=== PATIENT | female | born 1970 | race Caucasian/White ===

== ENCOUNTER 2017-03-22 12:36 | Emergency (ER) | payer OTHER ==
--- NOTE | 2017-03-22 13:27 | DIAGNOSTIC IMAGING REPORT ---
PROCEDURE: XR CHEST 1 VIEW INDICATION: CHEST PAIN TECHNIQUE: Portable AP view 01:05 p.m. COMPARISON: None. FINDINGS: Lungs are clear. Heart and mediastinum are normal. Thorax is normal. IMPRESSION: 1. Negative chest.
--- NOTE | 2017-03-22 16:28 | ED ORDER SUMMARY ---
..... Patient: GIANLUCA POWER OrderSheet [facility] VisitID: [id number] [place] [address] 46y, F Registration Date/Time: 03/22/2017 ORDER SHEET Weight: 119.2 kg (stated) Allergies: No Known Drug Allergy GENERAL ORDERS: Chest 1V Urgent (12:56 03/22/2017 HBivens A.R.N.P.) (Ack 12:57 KHoerner) (13:06 KWilliams R.N.) Spectroscopist (Continuous) (12:56 03/22/2017 HBivens A.R.N.P.) (13:02 KWilliams R.N.) CBC w Diff Urgent (12:56 03/22/2017 HBivens A.R.N.P.) (Ack 12:57 KHoerner) (13:02 KWilliams R.N.) CMP Urgent (12:56 03/22/2017 HBivens A.R.N.P.) (Ack 12:57 KHoerner) (13:02 KWilliams R.N.) D-Dimer Urgent (12:56 03/22/2017 HBivens A.R.N.P.) (Ack 12:57 KHoerner) (13:02 KWilliams R.N.) CPK Urgent (12:56 03/22/2017 HBivens A.R.N.P.) (Ack 12:57 KHoerner) (13:02 KWilliams R.N.) Troponin-I Urgent (12:56 03/22/2017 HBivens A.R.N.P.) (Ack 12:57 KHoerner) (13:02 KWilliams R.N.) Serum Qualitative Urgent (12:56 03/22/2017 HBivens A.R.N.P.) (Ack 12:57 KHoerner) (13:02 KWilliams R.N.) Oxygen (2 L/min) (NC) (12:56 03/22/2017 HBivens A.R.N.P.) (13:03 MWinterer R.N.) CPK Urgent (13:57 03/22/2017 HBivens A.R.N.P.) (Ack 13:59 KHoerner) (15:02 KHoerner) Troponin-I Urgent (13:57 03/22/2017 HBivens A.R.N.P.) (Ack 13:59 KHoerner) (15:02 KHoerner) MEDICATION ORDERS: NitroGLYCERIN SL 0.4 mg (x3 PRN Chest Pain) (13:03 03/22/2017 HBivens A.R.N.P.) (Ack 13:03 MWinterer R.N.) (13:04 MWinterer R.N.) IV FLUIDS: IV Saline Lock (12:56 03/22/2017 HBivens A.R.N.P.) (13:02 KWilliams R.N.) ORDER SHEET NOTES: [Electronically signed by Katelyn Sotelo R.N. (17:04 03/22/2017)] [Electronically signed by Layne Quintero.R.N.P. (17:28 03/22/2017)] [Electronically locked/signed by Katelyn Sotelo R.N. (17:04 03/22/2017)]
--- NOTE | 2017-03-22 16:28 | ED NURSING NOTES ---
Clinical Report - Nurses [facility] [address] [place] [address] 03/22/2017 12:40 Patient: GIANLUCA POWER TRIAGE Triage time 12:43. Acuity: LEVEL 3. Chief Complaint: CHEST PAIN and DISCOMFORT. Alert. No acute distress. [facility] COMA SCORE: [place] Coma Scale: 15- eyes open spontaneously (4); best verbal response- oriented x 4 (5); best motor response- obeys commands (6). --12:52 Alexander Kim R.N. 12:44 03/22/17. BP: 129/91. HR: 72. RR: 18. O2 saturation: 100% on room air. Temp: 98.2 F (oral). Pain level now 7/10. --12:52 Alexander Kim R.N. Weight: 119.2 kg stated. Height/Length: 72 inches Per Patient. BMI: 35.7. --12:45 Alexander Kim R.N. Medications None. --12:47 Alexander Kim R.N. Allergies No Known Drug Allergy. --12:47 Alexander Kim R.N. Medication/allergy information source: the patient. --12:52 Alexander Kim R.N. History Historian: patient. ( chest pain starting at 1600 yesterday during rest. states pain is constant. described at pressure. sent from [facility] urgent care, refused BLS transport, asa given at clinic). This started yesterday. 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 PAST MEDICAL HX: Last normal menstrual period was 1 week ago. Denies current . SOCIAL HX: Heavy tobacco smoker- 1 pack per day. No alcohol use or drug use. ABUSE ASSESSMENT: Abuse assessment: The patient was asked "Do you feel safe in your home?". No report of abuse. FALL RISK ASSESSMENT: Fall risk assessment completed. No fall risk identified. NUTRITIONAL RISK ASSESSMENT: The nutritional risk assessment revealed no deficiencies. FUNCTIONAL ASSESSMENT: Functional assessment: no impairments noted. LEARNING NEEDS ASSESSMENT: The learning needs assessment revealed no barriers. SKIN INTEGRITY ASSESSMENT: Skin integrity risk assessment completed. No skin integrity risk identified. --12:52 Alexander Kim R.N. Primary physician (no pcp). --12:53 Alexander Kim R.N. PROBLEMS: no known problems. ADDITIONAL SURGERIES: no known surgeries. Interventions ID band on patient. CHEST PAIN protocol initiated. To treatment room. --12:52 Alexander Kim R.N. PHYSICAL ASSESSMENT Ambulatory to room. GENERAL / NEURO / PSYCH: Alert. Oriented X 4. Appears in no acute distress. RESPIRATORY: Respirations not labored. CVS: Capillary refill less than 2 seconds. GI / : Abdomen soft and nontender. EXTREMITIES: No lower extremity edema. SKIN: Skin is warm and dry. --12:53 Alexander Kim R.N. NURSING PROGRESS NOTES 12:53 03/22/17. The plan of care for this patient has been created. Patient gowned. Head of bed elevated. Call light placed in reach. Bed placed in lowest position. Brakes of bed on. Patient ready for evaluation- chart flagged. --12:53 Alexander Kim R.N. EKG time: (1248). EKG was ordered, performed by a tech and shown to the ED physician. --12:54 [address] [place] 13:00 03/22/2017 Site #1 started via IV in the right antecubital space with an 18g angiocath, with aseptic technique and good blood return; one attempt. Blood drawn: rainbow set. Labeled in the presence of the patient and sent to the lab. Saline lock flushed with 10 mL saline. --13:02 Alexander Kim R.N. 13:04 03/22/2017 Nitroglycerin SL 0.4 mg given. Allergies verified and confirmed 5 rights. --13:04 Katelyn Sotelo R.N. 13:03/22/17. ( Pt reports pain relieved after 1 nitro.). --13: Katelyn Sotelo R.N. 13:03/22/17. BP: 112/73. HR: 69. RR: 18. O2 saturation: 100% on nasal cannula at 2 liters/minute. Pain level now: 0/10. --13:10 Katelyn Sotelo R.N. 14:23 03/22/17. BP: 118/75. HR: 63. RR: 18. O2 saturation: 97% on room air. Pain level now: 0/10. --14:24 Katelyn Sotelo R.N. 14:25 03/22/17. The patient reports no complaints and she is calm and resting quietly. RESPIRATORY: No respiratory distress. CVS: Denies chest pain. SKIN: Skin is warm and dry. Skin color within normal limits. --14:25 Katelyn Sotelo R.N. 14:25 03/22/17. CVS: Normal sinus rhythm noted. --14:25 Katelyn Sotelo R.N. 15:45 03/22/17. BP: 111/61. HR: 67. RR: 18. O2 saturation: 100% on room air. --15:46 Katelyn Sotelo R.N. DISPOSITION / DISCHARGE Departure time: 16:40 Mar 22 2017. Condition at departure: improved and stable. No learning barriers present. Patient verbalized understanding. Written instructions provided in Sami. The patient was discharged by the nurse practitioner. She was discharged home and accompanied by bias cutter helper. She left the Emergency Department ambulatory and via private vehicle. Radio Technician driving. --17:03 Katelyn Sotelo R.N. 17:02 03/22/17. BP: 105/66. HR: 60. RR: 12. O2 saturation: 100% on room air. Pain level now: 0/10. --17:03 Katelyn Sotelo R.N. 16:38 03/22/2017 Site #1 removed upon discharge. Catheter intact. Manual pressure and bandage applied. --17:04 Katelyn Sotelo R.N. Locked/Released at 03/22/2017 17:04 by Katelyn Sotelo R.N.
--- NOTE | 2017-03-22 16:28 | ED CLINICAL REPORT ---
Clinical Report - Physicians/Mid Levels [facility] [address] [place] [address] 03/22/2017 12:40 Patient: GIANLUCA POWER Time Seen: 1248; upon arrival, initial patient contact, initial documentation, patient care assumed. Arrived- By private vehicle. Historian- patient. HISTORY OF PRESENT ILLNESS Chief Complaint: CHEST PAIN and DISCOMFORT. At its maximum, severity described as moderate. When seen in the E.D., severity described as moderate. Modifying factors. Not worsened by anything. Not relieved by anything. It is described as pressure and tightness and describes it has a band going around chest to back and it is described as located in the central chest area and radiating to the upper back. This started yesterday and is still present. It was abrupt in onset and has been constant. Onset during rest; watching tv. No nausea, vomiting or diaphoresis. She has had difficulty breathing at rest (says she feels like she can't get a good or deep breath). No additional chest pain. Similar symptoms previously: Several times, occasionally, milder. ( has had several issues of this happening, but never went to dr, thought it was anxiety). Recent medical care: The patient was seen recently in a clinic. ( went to clinic [employer], given asa and sent here for eval). REVIEW OF SYSTEMS No fever, cough or pedal edema. All systems otherwise negative, except as recorded above. PAST HISTORY Negative. SOCIAL HISTORY Heavy tobacco smoker. No alcohol use or drug use. No recent travel. Is a local resident. FAMILY HISTORY History of heart disease. ADDITIONAL NOTES The nursing notes have been reviewed with agreement regarding the chief complaint, HPI, ROS, PMH and patient medications and allergies. PHYSICAL EXAM Vital Signs: 03/22/2017 12:44 BP: 129/91. HR: 72. RR: 18. O2 saturation: 100%. Temp: 98.2 F. Have been reviewed as normal and appear to be correct. Appearance: Alert. Oriented X3. No acute distress. Eyes: Pupils equal, round and reactive to light. Eyes normal inspection. Neck: Normal inspection. Neck supple. CVS: Normal heart rate and rhythm. Heart sounds normal. Pulses normal. Respiratory: No respiratory distress. Breath sounds normal. Chest nontender. Abdomen: Soft and nontender. Mildly obese. Back: Normal external inspection. Skin: Skin warm and dry. Normal skin color. No rash. Normal skin turgor. Extremities: Extremities exhibit normal ROM. No lower extremity edema. Neuro: Oriented X 3. No motor deficit. No sensory deficit. LABS, X-RAYS, AND EKG EKG: EKG time: (1248). No acute process. No acute ischemia. Normal EKG. Rate: 67. Normal EKG. The study has been interpreted contemporaneously by me (and Dr Mauricio). The EKG appears to be a good tracing. Interpretation time: 1248. Chest X-ray: Normal Chest X-Ray. (IMPRESSION: 1. Negative chest. Electronically Final signed by:Lan Gregg MD 03/22/2017 1:27:09 PM). The X-rays were interpreted by the radiologist and contemporaneously by me. Laboratory Tests: Serum Qualitative: (MERLIN: 03/22/2017 13:00) ( [facility] 03/22/2017 13:25) Final results Test Result Flag Units (Reference) , SERUM NEGATIVE CBC w Diff: (MERLIN: 03/22/2017 13:00) ( [facility] 03/22/2017 13:10) Final results Test Result Flag Units (Reference) WHITE BLOOD COUNT 4.6 K/uL (4.5-11.5) RED BLOOD COUNT 4.88 M/uL (4.00-5.20) HEMOGLOBIN 15.0 gm/dL (12.0-16.0) HEMATOCRIT 45.0 % (36.0-46.0) MEAN CELL VOLUME 92 fL (80-100) MEAN CORPUSCULAR HGB 31 pg (26-34) MEAN CORPUSCULAR HGB CONC 33 g/dL (31-37) RED CELL DISTRIBUTION WIDTH 12.4 % (11.6-14.8) PLATELET COUNT 230 K/uL (150-400) LYMPH % 38.5 % (25-40) MONO % 8.4 % (3-14) GRANULOCYTE % 53.1 (53-90) [id number]: (MERLIN: 03/22/2017 13:00) ( [facility] 03/22/2017 13:18) Final results Test Result Flag Units (Reference) D-DIMER QUANTITATIVE < 0.27 L ug/mLFEU (0.27-0.52) The primary value of this quantitative assay relates toits negative predictive value (i.e. exclusion) of pulmonaryembolism/deep vein thrombosis/DIC.Elevated levels of d-dimer may also occur with:, age, cancer, inflammation, liver disease,post-op, infection, hematoma, coronary disease, peripheralarteriopathy, bleeding disorders and thrombolytic treatment.Results should be correlated with other clinical andradiological data.Testing Methodology: Latex Immunoassay CPK: (MERLIN: 03/22/2017 15:00) ( [facility] 03/22/2017 15:32) Final results Test Result Flag Units (Reference) CPK 110 U/L (24-260) TROPONIN I <0.05 ng/mL (0.00-1.5) TROPONIN REFERENCE RANGE:<0.1 NEGATIVE0.1-1.5 INDETERMINANT>1.5 POSITIVE CMP: (MERLIN: 03/22/2017 13:00) ( [facility] 03/22/2017 13:28) Final results Test Result Flag Units (Reference) GLUCOSE 106 mg/dL (70-110) BUN 9 mg/dL (7-18) CREATININE 0.8 mg/dL (0.6-1.3) Estimated GFR >60 mL/min Estimated GFR- >60 mL/min Note: Persistent reduction over 3 months in eGFR<60 mL/min/1.73 m2 defines CKD. Patients with eGFR values>=60 mL/min/1.73 m2 may also have CKD if evidence ofpersistent proteinuria. Additional information may be foundat www.kidney.org. SODIUM 139 mmol/L (136-145) POTASSIUM 3.9 mmol/L (3.5-5.1) CHLORIDE 104 mmol/L (98-107) CARBON DIOXIDE 29 mmol/L (21-32) CALCIUM 8.8 mg/dL (8.5-10.1) TOTAL PROTEIN 7.3 g/dL (6.4-8.2) ALBUMIN 3.8 g/dL (3.3-5.0) BILIRUBIN, TOTAL 1.5 H mg/dL (0.0-1.0) ALKALINE PHOSPHATASE 56 U/L (46-116) AST (SGOT) 16 U/L (15-37) ALT (SGPT) 23 U/L (12-78) CPK 114 U/L (24-260) TROPONIN I <0.05 ng/mL (0.00-1.5) TROPONIN REFERENCE RANGE:<0.1 NEGATIVE0.1-1.5 INDETERMINANT>1.5 POSITIVE . PROGRESS AND PROCEDURES Course of Care: 13:02 03/22/17. chart from clinic reviewed 1355. labs reviewed and 2nd set of enzymes ordered and due at 1500, pt updated, nurse informing me pt was cp free after x1 ntg. 03/22/2017 15:45 BP: 111/61. HR: 67. RR: 18. O2 saturation: 100%. Vital Signs: have been reviewed as normal and appear to be correct. Patient counseled in person regarding the patient's stable condition, test results and diagnosis. 16:28. Differential Diagnosis: I considered muscle strain, costochondritis, myositis, pleurisy, myocardial infarction, intermediate coronary syndrome, unstable angina, angina, aortic dissection, mitral valve prolapse, pericarditis, pulmonary embolism, pneumonia, lung cancer, gastroesophageal reflux disease, esophagitis and esophageal spasm as a possible cause of chest pain in this patient. This is a partial list of diagnoses considered. (anxiety, substance abuse). Above considerations are based on history, physical exam, reassessment, laboratory data, X-Ray data and EKG. Differential diagnosis was discussed with patient. Disposition: Discharged home in good and improved condition (16:28). Condition: good and stable. CLINICAL IMPRESSION Atypical chest pain .12 lead EKG performed. INSTRUCTIONS Warnings: Further evaluation is necessary in order to conduct further tests. It is very important to follow up with a physician. GENERAL WARNINGS: Return or contact your physician immediately if your condition worsens or changes unexpectedly, if not improving as expected, or if other problems arise. SPECIFICALLY, return if you develop chest, neck, jaw, shoulder, arm, or back pain, difficulty breathing, a fluttering sensation in your chest, lightheadedness, fainting, excessive fatigue, or sudden sweating. Follow-up: Follow up with your doctor in about two days even if well. Call for an appointment. Summary of care provided to patient. Understanding of the discharge instructions verbalized by patient. (Electronically signed by Layne Quintero A.R.N.P. 03/22/2017 17:28)
--- NOTE | 2017-03-22 16:28 | ED ORDER SUMMARY ---
..... Patient: GIANLUCA POWER OrderSheet [facility] VisitID: [id number] [place] [address] 46y, F Registration Date/Time: 03/22/2017 ORDER SHEET Weight: 119.2 kg (stated) Allergies: No Known Drug Allergy GENERAL ORDERS: Chest 1V Urgent (12:56 03/22/2017 HBivens A.R.N.P.) (Ack 12:57 KHoerner) (13:06 KWilliams R.N.) Report Specialist (Continuous) (12:56 03/22/2017 HBivens A.R.N.P.) (13:02 KWilliams R.N.) CBC w Diff Urgent (12:56 03/22/2017 HBivens A.R.N.P.) (Ack 12:57 KHoerner) (13:02 KWilliams R.N.) CMP Urgent (12:56 03/22/2017 HBivens A.R.N.P.) (Ack 12:57 KHoerner) (13:02 KWilliams R.N.) D-Dimer Urgent (12:56 03/22/2017 HBivens A.R.N.P.) (Ack 12:57 KHoerner) (13:02 KWilliams R.N.) CPK Urgent (12:56 03/22/2017 HBivens A.R.N.P.) (Ack 12:57 KHoerner) (13:02 KWilliams R.N.) Troponin-I Urgent (12:56 03/22/2017 HBivens A.R.N.P.) (Ack 12:57 KHoerner) (13:02 KWilliams R.N.) Serum Qualitative Urgent (12:56 03/22/2017 HBivens A.R.N.P.) (Ack 12:57 KHoerner) (13:02 KWilliams R.N.) Oxygen (2 L/min) (NC) (12:56 03/22/2017 HBivens A.R.N.P.) (13:03 MWinterer R.N.) CPK Urgent (13:57 03/22/2017 HBivens A.R.N.P.) (Ack 13:59 KHoerner) (15:02 KHoerner) Troponin-I Urgent (13:57 03/22/2017 HBivens A.R.N.P.) (Ack 13:59 KHoerner) (15:02 KHoerner) MEDICATION ORDERS: NitroGLYCERIN SL 0.4 mg (x3 PRN Chest Pain) (13:03 03/22/2017 HBivens A.R.N.P.) (Ack 13:03 MWinterer R.N.) (13:04 MWinterer R.N.) IV FLUIDS: IV Saline Lock (12:56 03/22/2017 HBivens A.R.N.P.) (13:02 KWilliams R.N.) ORDER SHEET NOTES: [Electronically signed by Katelyn Sotelo R.N. (17:04 03/22/2017)] [Electronically signed by Layne Quintero.R.N.P. (17:28 03/22/2017)] [Electronically locked/signed by Katelyn Sotelo R.N. (17:04 03/22/2017)]
--- NOTE | 2017-03-22 16:28 | ED CLINICAL REPORT ---
Clinical Report - Physicians/Mid Levels [facility] [address] [place] [address] 03/22/2017 12:40 Patient: GIANLUCA POWER Time Seen: 1248; upon arrival, initial patient contact, initial documentation, patient care assumed. Arrived- By private vehicle. Historian- patient. HISTORY OF PRESENT ILLNESS Chief Complaint: CHEST PAIN and DISCOMFORT. At its maximum, severity described as moderate. When seen in the E.D., severity described as moderate. Modifying factors. Not worsened by anything. Not relieved by anything. It is described as pressure and tightness and describes it has a band going around chest to back and it is described as located in the central chest area and radiating to the upper back. This started yesterday and is still present. It was abrupt in onset and has been constant. Onset during rest; watching tv. No nausea, vomiting or diaphoresis. She has had difficulty breathing at rest (says she feels like she can't get a good or deep breath). No additional chest pain. Similar symptoms previously: Several times, occasionally, milder. ( has had several issues of this happening, but never went to dr, thought it was anxiety). Recent medical care: The patient was seen recently in a clinic. 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 REVIEW OF SYSTEMS No fever, cough or pedal edema. All systems otherwise negative, except as recorded above. PAST HISTORY Negative. SOCIAL HISTORY Heavy tobacco smoker. No alcohol use or drug use. No recent travel. Is a local resident. FAMILY HISTORY History of heart disease. ADDITIONAL NOTES The nursing notes have been reviewed with agreement regarding the chief complaint, HPI, ROS, PMH and patient medications and allergies. PHYSICAL EXAM Vital Signs: 03/22/2017 12:44 BP: 129/91. HR: 72. RR: 18. O2 saturation: 100%. Temp: 98.2 F. Have been reviewed as normal and appear to be correct. Appearance: Alert. Oriented X3. No acute distress. Eyes: Pupils equal, round and reactive to light. Eyes normal inspection. Neck: Normal inspection. Neck supple. CVS: Normal heart rate and rhythm. Heart sounds normal. Pulses normal. Respiratory: No respiratory distress. Breath sounds normal. Chest nontender. Abdomen: Soft and nontender. Mildly obese. Back: Normal external inspection. Skin: Skin warm and dry. Normal skin color. No rash. Normal skin turgor. Extremities: Extremities exhibit normal ROM. No lower extremity edema. Neuro: Oriented X 3. No motor deficit. No sensory deficit. LABS, X-RAYS, AND EKG EKG: EKG time: (1248). No acute process. No acute ischemia. Normal EKG. Rate: 67. Normal EKG. The study has been interpreted contemporaneously by me (and Dr Mauricio). The EKG appears to be a good tracing. Interpretation time: 1248. Chest X-ray: Normal Chest X-Ray. (IMPRESSION: 1. Negative chest. Electronically Final signed by:Lan Gregg MD 03/22/2017 1:27:09 PM). The X-rays were interpreted by the radiologist and contemporaneously by me. Laboratory Tests: Serum Qualitative: (MERLIN: 03/22/2017 13:00) ( [facility] 03/22/2017 13:25) Final results Test Result Flag Units (Reference) , SERUM NEGATIVE CBC w Diff: (MERLIN: 03/22/2017 13:00) ( [facility] 03/22/2017 13:10) Final results Test Result Flag Units (Reference) WHITE BLOOD COUNT 4.6 K/uL (4.5-11.5) RED BLOOD COUNT 4.88 M/uL (4.00-5.20) HEMOGLOBIN 15.0 gm/dL (12.0-16.0) HEMATOCRIT 45.0 % (36.0-46.0) MEAN CELL VOLUME 92 fL (80-100) MEAN CORPUSCULAR HGB 31 pg (26-34) MEAN CORPUSCULAR HGB CONC 33 g/dL (31-37) RED CELL DISTRIBUTION WIDTH 12.4 % (11.6-14.8) PLATELET COUNT 230 K/uL (150-400) LYMPH % 38.5 % (25-40) MONO % 8.4 % (3-14) GRANULOCYTE % 53.1 (53-90) [id number]: (MERLIN: 03/22/2017 13:00) ( [facility] 03/22/2017 13:18) Final results Test Result Flag Units (Reference) D-DIMER QUANTITATIVE < 0.27 L ug/mLFEU (0.27-0.52) The primary value of this quantitative assay relates toits negative predictive value (i.e. exclusion) of pulmonaryembolism/deep vein thrombosis/DIC.Elevated levels of d-dimer may also occur with:, age, cancer, inflammation, liver disease,post-op, infection, hematoma, coronary disease, peripheralarteriopathy, bleeding disorders and thrombolytic treatment.Results should be correlated with other clinical andradiological data.Testing Methodology: Latex Immunoassay CPK: (MERLIN: 03/22/2017 15:00) ( [facility] 03/22/2017 15:32) Final results Test Result Flag Units (Reference) CPK 110 U/L (24-260) TROPONIN I <0.05 ng/mL (0.00-1.5) TROPONIN REFERENCE RANGE:<0.1 NEGATIVE0.1-1.5 INDETERMINANT>1.5 POSITIVE CMP: (MERLIN: 03/22/2017 13:00) ( [facility] 03/22/2017 13:28) Final results Test Result Flag Units (Reference) GLUCOSE 106 mg/dL (70-110) BUN 9 mg/dL (7-18) CREATININE 0.8 mg/dL (0.6-1.3) Estimated GFR >60 mL/min Estimated GFR- >60 mL/min Note: Persistent reduction over 3 months in eGFR<60 mL/min/1.73 m2 defines CKD. Patients with eGFR values>=60 mL/min/1.73 m2 may also have CKD if evidence ofpersistent proteinuria. Additional information may be foundat www.kidney.org. SODIUM 139 mmol/L (136-145) POTASSIUM 3.9 mmol/L (3.5-5.1) CHLORIDE 104 mmol/L (98-107) CARBON DIOXIDE 29 mmol/L (21-32) CALCIUM 8.8 mg/dL (8.5-10.1) TOTAL PROTEIN 7.3 g/dL (6.4-8.2) ALBUMIN 3.8 g/dL (3.3-5.0) BILIRUBIN, TOTAL 1.5 H mg/dL (0.0-1.0) ALKALINE PHOSPHATASE 56 U/L (46-116) AST (SGOT) 16 U/L (15-37) ALT (SGPT) 23 U/L (12-78) CPK 114 U/L (24-260) TROPONIN I <0.05 ng/mL (0.00-1.5) TROPONIN REFERENCE RANGE:<0.1 NEGATIVE0.1-1.5 INDETERMINANT>1.5 POSITIVE . PROGRESS AND PROCEDURES Course of Care: 13:02 03/22/17. chart from clinic reviewed 1355. labs reviewed and 2nd set of enzymes ordered and due at 1500, pt updated, nurse informing me pt was cp free after x1 ntg. 03/22/2017 15:45 BP: 111/61. HR: 67. RR: 18. O2 saturation: 100%. Vital Signs: have been reviewed as normal and appear to be correct. Patient counseled in person regarding the patient's stable condition, test results and diagnosis. 16:28. Differential Diagnosis: I considered muscle strain, costochondritis, myositis, pleurisy, myocardial infarction, intermediate coronary syndrome, unstable angina, angina, aortic dissection, mitral valve prolapse, pericarditis, pulmonary embolism, pneumonia, lung cancer, gastroesophageal reflux disease, esophagitis and esophageal spasm as a possible cause of chest pain in this patient. This is a partial list of diagnoses considered. (anxiety, substance abuse). Above considerations are based on history, physical exam, reassessment, laboratory data, X-Ray data and EKG. Differential diagnosis was discussed with patient. Disposition: Discharged home in good and improved condition (16:28). Condition: good and stable. CLINICAL IMPRESSION Atypical chest pain .12 lead EKG performed. INSTRUCTIONS Warnings: Further evaluation is necessary in order to conduct further tests. It is very important to follow up with a physician. GENERAL WARNINGS: Return or contact your physician immediately if your condition worsens or changes unexpectedly, if not improving as expected, or if other problems arise. SPECIFICALLY, return if you develop chest, neck, jaw, shoulder, arm, or back pain, difficulty breathing, a fluttering sensation in your chest, lightheadedness, fainting, excessive fatigue, or sudden sweating. Follow-up: Follow up with your doctor in about two days even if well. Call for an appointment. Summary of care provided to patient. Understanding of the discharge instructions verbalized by patient. (Electronically signed by Layne Quintero A.R.N.P. 03/22/2017 17:28)
--- NOTE | 2017-03-22 16:28 | ED NURSING NOTES ---
Clinical Report - Nurses [facility] [address] [place] [address] 03/22/2017 12:40 Patient: GIANLUCA POWER TRIAGE Triage time 12:43. Acuity: LEVEL 3. Chief Complaint: CHEST PAIN and DISCOMFORT. Alert. No acute distress. MC COMA SCORE: Sentinel Coma Scale: 15- eyes open spontaneously (4); best verbal response- oriented x 4 (5); best motor response- obeys commands (6). --12:52 Alexander Kim R.N. 12:44 03/22/17. BP: 129/91. HR: 72. RR: 18. O2 saturation: 100% on room air. Temp: 98.2 F (oral). Pain level now 7/10. --12:52 Alexander Kim R.N. Weight: 119.2 kg stated. Height/Length: 72 inches Per Patient. BMI: 35.7. --12:45 Alexander Kim R.N. Medications None. --12:47 Alexander Kim R.N. Allergies No Known Drug Allergy. --12:47 Alexander Kim R.N. Medication/allergy information source: the patient. --12:52 Alexander Kim R.N. History Historian: patient. ( chest pain starting at 1600 yesterday during rest. states pain is constant. described at pressure. sent from [facility] urgent care, refused BLS transport, asa given at clinic). This started yesterday. 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 PAST MEDICAL HX: Last normal menstrual period was 1 week ago. Denies current . SOCIAL HX: Heavy tobacco smoker- 1 pack per day. No alcohol use or drug use. ABUSE ASSESSMENT: Abuse assessment: The patient was asked "Do you feel safe in your home?". No report of abuse. FALL RISK ASSESSMENT: Fall risk assessment completed. No fall risk identified. NUTRITIONAL RISK ASSESSMENT: The nutritional risk assessment revealed no deficiencies. FUNCTIONAL ASSESSMENT: Functional assessment: no impairments noted. LEARNING NEEDS ASSESSMENT: The learning needs assessment revealed no barriers. SKIN INTEGRITY ASSESSMENT: Skin integrity risk assessment completed. No skin integrity risk identified. --12:52 Alexander Kim R.N. Primary physician (no pcp). --12:53 Alexander Kim R.N. PROBLEMS: no known problems. ADDITIONAL SURGERIES: no known surgeries. Interventions ID band on patient. CHEST PAIN protocol initiated. To treatment room. --12:52 Alexander Kim R.N. PHYSICAL ASSESSMENT Ambulatory to room. GENERAL / NEURO / PSYCH: Alert. Oriented X 4. Appears in no acute distress. RESPIRATORY: Respirations not labored. CVS: Capillary refill less than 2 seconds. GI / : Abdomen soft and nontender. EXTREMITIES: No lower extremity edema. SKIN: Skin is warm and dry. --12:53 Alexander Kim R.N. NURSING PROGRESS NOTES 12:53 03/22/17. The plan of care for this patient has been created. Patient gowned. Head of bed elevated. Call light placed in reach. Bed placed in lowest position. Brakes of bed on. Patient ready for evaluation- chart flagged. --12:53 Alexander Kim R.N. EKG time: (1248). EKG was ordered, performed by a tech and shown to the ED physician. --12:54 [address] [place] 13:00 03/22/2017 Site #1 started via IV in the right antecubital space with an 18g angiocath, with aseptic technique and good blood return; one attempt. Blood drawn: rainbow set. Labeled in the presence of the patient and sent to the lab. Saline lock flushed with 10 mL saline. --13:02 Alexander Kim R.N. 13:04 03/22/2017 Nitroglycerin SL 0.4 mg given. Allergies verified and confirmed 5 rights. --13:04 Katelyn Sotelo R.N. 13:03/22/17. ( Pt reports pain relieved after 1 nitro.). --13: Katelyn Sotelo R.N. 13:03/22/17. BP: 112/73. HR: 69. RR: 18. O2 saturation: 100% on nasal cannula at 2 liters/minute. Pain level now: 0/10. --13:10 Katelyn Sotelo R.N. 14:23 03/22/17. BP: 118/75. HR: 63. RR: 18. O2 saturation: 97% on room air. Pain level now: 0/10. --14:24 Katelyn Sotelo R.N. 14:25 03/22/17. The patient reports no complaints and she is calm and resting quietly. RESPIRATORY: No respiratory distress. CVS: Denies chest pain. SKIN: Skin is warm and dry. Skin color within normal limits. --14:25 Katelyn Sotelo R.N. 14:25 03/22/17. CVS: Normal sinus rhythm noted. --14:25 Katelyn Sotelo R.N. 15:45 03/22/17. BP: 111/61. HR: 67. RR: 18. O2 saturation: 100% on room air. --15:46 Katelyn Sotelo R.N. DISPOSITION / DISCHARGE Departure time: 16:40 Mar 22 2017. Condition at departure: improved and stable. No learning barriers present. Patient verbalized understanding. Written instructions provided in Swedish. The patient was discharged by the nurse practitioner. She was discharged home and accompanied by development writer. She left the Emergency Department ambulatory and via private vehicle. [employer] Worker driving. --17:03 Katelyn Sotelo R.N. 17:02 03/22/17. BP: 105/66. HR: 60. RR: 12. O2 saturation: 100% on room air. Pain level now: 0/10. --17:03 Katelyn Sotelo R.N. 16:38 03/22/2017 Site #1 removed upon discharge. Catheter intact. Manual pressure and bandage applied. --17:04 Katelyn Sotelo R.N. Locked/Released at 03/22/2017 17:04 by Katelyn Sotelo R.N.
--- NOTE | 2017-03-22 17:29 | ED MED RECONCILIATION SUMMARY ---
Patient: GIANLUCA POWER Medication Reconciliation Report [facility] VisitID: [id number] [address] [place] [address] 46y, F Registration Date/Time: 03/22/2017 Weight: 119.2 kg Height/Length: 72 in. BMI: 35.7 ALLERGIES: No Known Drug Allergy The patient's Home Medications are listed below: NONE. The source(s) of the original Home Medication information: patient The following Medications were given to the patient in the Emergency Department: Nitroglycerin [SL] SL 0.4 mg, administered: 03/22/2017 1:04:00 PM The following Medications were prescribed to the patient: None.
--- NOTE | 2017-03-22 17:29 | ED DISCHARGE INSTRUCTIONS ---
Patient: GIANLUCA POWER General Instructions [facility] VisitID: [id number] [place] [address] 46y, F Registration Date/Time: 03/22/2017 Atypical chest pain .12 lead EKG performed. INSTRUCTIONS Warnings: Further evaluation is necessary in order to conduct further tests. It is very important to follow up with a physician. GENERAL WARNINGS: Return or contact your physician immediately if your condition worsens or changes unexpectedly, if not improving as expected, or if other problems arise. SPECIFICALLY, return if you develop chest, neck, jaw, shoulder, arm, or back pain, difficulty breathing, a fluttering sensation in your chest, lightheadedness, fainting, excessive fatigue, or sudden sweating. Follow-up: Follow up with your doctor in about two days even if well. Call for an appointment. Summary of care provided to patient. Understanding of the discharge instructions verbalized by patient. ADDITIONAL INFORMATION Chest Pain, Noncardiac Based on your visit today, the exact cause of your chest pain is not certain. Your condition does not seem serious and your pain does not appear to be coming from your heart. However, sometimes the signs of a serious problem take more time to appear. Therefore, please watch for the warning signs listed below. Home Care: Rest today and avoid strenuous activity. Take any prescribed medicine as directed. Follow Up with your doctor or this facility as instructed or if you do not start to feel better within 24 hours. Get Prompt Medical Attention if any of the following occur: A change in the type of pain: if it feels different, becomes more severe, lasts longer, or begins to spread into your shoulder, arm, neck, jaw or back Shortness of breath or increased pain with breathing Cough with dark colored sputum (phlegm) or blood Weakness, dizziness, or fainting Fever of 100.4F (38C) or higher, or as directed by your healthcare provider Swelling, pain or redness in one leg Chest Pain, Uncertain Cause Chest pain can happen for a number of reasons. Sometimes the cause can not be determined. If yourcondition does not seem serious, and your pain does not appear to be coming from your heart, your doctor may recommend watching it closely. Sometimes the signs of a serious problem take more time to appear. Therefore, watch for the warning signs listed below. Home care After your visit, follow these recommendations: Rest today and avoid strenuous activity. Take any prescribed medicine as directed. Follow-up care Follow up with your doctor or this facility as instructed or if you do not start to feel better within 24 hours. Call 911 Get immediate medical attention if any of the following occur: A change in the type of pain: if it feels different, becomes more severe, lasts longer, or begins to spread into your shoulder, arm, neck, jaw or back Shortness of breath or increased pain with breathing Weakness, dizziness, or fainting Rapid heart beat Get prompt medical attention Call your doctor right away if any of the following occur: Cough with dark colored sputum (phlegm) or blood Fever of 100.4F(38C) or higher, or as directed by your health care provider Swelling, pain or redness in one leg Esophageal Spasm The esophagus is a muscular tube that joins your mouth to your stomach. Normal waves of contraction help food move down the esophagus to reach the stomach. Esophageal spasms are abnormal contractions of these muscles. When the muscles are in spasm it may feel like the food is stuck and wont go down. It may cause a feeling of heartburn or a squeezing type of chest pain that can feel just like heart pain (angina). The pain may spread to the neck, arm or back. If you try to swallow more food or liquid during a spasm, it may come back up within seconds. The cause of esophageal spasm is not known but it is more common in people with acid reflux disease (also called "GERD" or "Esophagitis"). Very hot or very cold foods or foods that are not chewed enough before swallowing may trigger an episode. Special tests may be ordered to confirm the diagnosis if there is doubt. Medicine is used to prevent or treat symptoms in most cases. Severe symptoms can be treated with surgery. Home Care: If you are prone to acid reflux and heartburn symptoms, your doctor may prescribe acid-blocking medicine. If not, you can use over the counter medicines as a preventive if you get symptoms often. The following medicines are available without a prescription: Antacids: Neutralize stomach acid. (such as Gaviscon, Mylanta, Tums or Rolaids) Acid-Blockers: Reduce the production of acid in the stomach. (Axid, Pepcid-AC, Tagamet-HB, Zantac, Prilosec-OTC). Learn to recognize if certain foods are causing your spasm and avoid these. Avoid very hot and very cold foods if this is a trigger for you. Eat slowly and chew food well before swallowing. Follow Up with your doctor or as advised by our staff. Get Prompt Medical Attention if any of the following occur: Chest pain or pain in the neck, back, shoulder or arm that does not respond to the treatment recommended Food that feels "stuck" in the esophagus for more than 30 minutes Inability to swallow solid or liquids for more than 30 minutes Symptoms that feel like esophageal spasm but occur with heavy sweating, dizziness, fainting or shortness of breath Change in the usual patterns of your symptoms of esophageal spasm (new pattern of spreading to the neck, back, shoulder or arm; pain that is more severe than usual) You have been given the following additional information: Chest Pain, Noncardiac Chest Pain, Uncertain Cause Esophageal Spasm (Electronically signed by Layne Quintero A.R.N.P. 03/22/2017 17:28)
--- NOTE | 2017-03-22 17:29 | ED MED RECONCILIATION SUMMARY ---
Patient: GIANLUCA POWER Medication Reconciliation Report [facility] VisitID: [id number] [address] [place] [address] 46y, F Registration Date/Time: 03/22/2017 Weight: 119.2 kg Height/Length: 72 in. BMI: 35.7 ALLERGIES: No Known Drug Allergy The patient's Home Medications are listed below: NONE. The source(s) of the original Home Medication information: patient The following Medications were given to the patient in the Emergency Department: Nitroglycerin [SL] SL 0.4 mg, administered: 03/22/2017 1:04:00 PM The following Medications were prescribed to the patient: None.
--- NOTE | 2017-03-22 17:29 | ED MAR SUMMARY ---
..... Medication Administration Record [facility] [address] [place] [address] Patient: GIANLUCA POWER Visit ID: [id number] 46y, F Weight: 119.2 kg Height/Length: 72 in BMI: 35.7 ALLERGIES: No Known Drug Allergy Given 13:04 03/22/2017 Katelyn Sotelo R.N. Medication Administered: NITROGLYCERIN [SL], Dose: 0.4 mg SL. Medication Ordered: NitroGLYCERIN SL 0.4 mg (x3 PRN Chest Pain).
--- NOTE | 2017-03-22 17:29 | ED MAR SUMMARY ---
..... Medication Administration Record [facility] [address] [place] [address] Patient: GIANLUCA POWER Visit ID: [id number] 46y, F Weight: 119.2 kg Height/Length: 72 in BMI: 35.7 ALLERGIES: No Known Drug Allergy Given 13:04 03/22/2017 Katelyn Sotelo R.N. Medication Administered: NITROGLYCERIN [SL], Dose: 0.4 mg SL. Medication Ordered: NitroGLYCERIN SL 0.4 mg (x3 PRN Chest Pain).
== END 2017-03-22 16:40 | disposition home or self-care (01) ==
LOC: ED SRH 12:36
DX: R07.89 Other chest pain (principal); F17.210 Nicotine dependence, cigarettes, uncomplicated
CPT/HCPCS: 90074; 90100; 90616; 91556; 92610; 95059; 98428